=== PATIENT | male | born 1995 | race Caucasian/White ===

== ENCOUNTER 2018-09-13 12:49 | Emergency (ER) | payer OTHER ==
[2018-09-13 13:04] VITALS: BP 120/60
[2018-09-13] MEDS ORDERED: predniSONE 20 MG TABLET PO STA (14:06)
--- NOTE | 2018-09-13 14:11 | ED Physician Documentation ---
History of Present Illness - Stated complaint Stated Complaint: BEE STING - Chief complaint Chief Complaint: Wound - History obtained from History obtained from: Patient - History of Present Illness Timing: How many hours ago (4) Pain level max: 0 Pain level now: 0 - Additonal information Additional information: Patient with a bee sting the left hand. Noted swelling to the left palm and wrist. Took Benadryl. This is now improving. No difficulty breathing. No throat swelling. Better with time, nothing made it worse this occured at work Review of Systems Constitutional: denies: Fever, Chills Cardiac: denies: Chest pain / pressure Respiratory: denies: Dyspnea, Cough, Wheezing GI: denies: Vomiting PD PAST MEDICAL HISTORY - Past Medical History Past Medical History: No Cardiovascular: None Respiratory: None Neuro: None Endocrine/Autoimmune: None GI: None : None HEENT: None Psych: None Musculoskeletal: None Derm: None - Past Surgical History Past Surgical History: No - Present Medications Home Medications: Ambulatory Orders Medication Instructions Recorded Confirmed No Known Home Medications 09/13/18 09/13/18 - Allergies Allergies/Adverse Reactions: Allergies Allergy/AdvReac Type Severity Reaction Status Date / Time bee venom protein (honey bee) Allergy Hives Verified 09/13/18 13:04 - Social History Does the pt smoke?: Yes Smoking Status: Current every day smoker Does the pt drink ETOH?: Yes Does the pt have substance abuse?: Yes Substance Use and Type: Marijuana - Immunizations Immunizations are current?: Yes - POLST Patient has POLST: No PD ED PE NORMAL - Vitals Vital signs reviewed: Yes - General General: Alert and oriented X 3, No acute distress - HEENT HEENT: Moist mucous membranes, Other (Normal phonation. No trismus. No stridor) - Neck Neck: Supple, no meningeal sign - Cardiac Cardiac: RRR - Respiratory Respiratory: No respiratory distress, Clear bilaterally - Derm Derm: Warm and dry - Extremities Extremities: Other (Left hand mild swelling to the thenar eminence. Otherwise normal examination of the left hand and wrist. Neurovascular intact) - Neuro Neuro: Alert and oriented X 3 Results - Vitals Vitals: Vital Signs - 24 hr 09/13/18 13:01 Temperature 36.7 C Heart Rate 56 L Respiratory 16 Rate Blood Pressure 120/60 O2 Saturation 99 Oxygen O2 Source Room air PD MEDICAL DECISION MAKING - ED course Complexity details: considered differential, d/w patient ED course: Bee sting to the left hand and wrist. Localized allergic reaction. No anaphylaxis. Given a dose of prednisone here. Took Benadryl prior to arrival. We will follow-up with his doctor for further care. Patient counseled regarding signs and symptoms for which I believe and urgent re-evaluation would be necessary. Patient with good understanding of and agreement to plan and is comfortable going home at this time. [employer] paperwork filled out This document was made in part using voice recognition software. While efforts are made to proofread this document, sound alike and grammatical errors may occur. Departure - Departure Disposition: 01 Home, Self Care Clinical Impression: Bee sting allergy Condition: Good Instructions: ED Bite Sting Insect Local Allergic React Follow-Up: Your,doctor as needed [Other] Comments: You can use Benadryl as needed at home. Return if you worsen. Go to the nearest medical facility if you develop chest tightness or difficulty breathing. Forms: Activity restrictions
== END 2018-09-13 14:20 | disposition home or self-care (01) ==
LOC: ED 12:49
DX: T63.441A Toxic effect of venom of bees, accidental (unintentional), initial encounter (principal); X58.XXXA Exposure to other specified factors, initial encounter; F17.200 Nicotine dependence, unspecified, uncomplicated
CPT/HCPCS: 99282; J7512